=== PATIENT | female | born 1955 | race Caucasian/White ===

== ENCOUNTER 2024-03-12 20:01 | Emergency (ER) | payer OTHER, SELFPAY ==
[2024-03-12 20:03] VITALS: BP 136/75
--- NOTE | 2024-03-12 21:03 | ED.GENMED ---
History of Present Illness
General
Chief Complaint: Abdominal Pain
Source: patient
Exam Limitations: none
Time Seen by Provider: 03/12/24 20:49
Nursing documentation reviewed up to this point in time: agreed with
Travel History
Have you had any contact with someone who has COVID-19?: No
Do you have any symptoms of coronavirus? Fever > 100 degrees, chills, cough, shortness of breath, sore throat, loss of taste or smell, muscle aches, or headache?: No
History of Present Illness
History of Present Illness:
68 yo female w h/o HLD, Breast CA x 3 with mastectomy, lumpectomy, last 2 yrs ago, Pelvic floor surgery 08/2023, presents stating 3 days ago developed R flank pain, fatigue, fever 101.0, 2 days ago developed pain across lower abdomen, chills, fever
101.0 again. Took Advil, felt a little better. Woke up next two nights with sweats. Yesterday felt a little better but pain remained across lower abdomen 2-4/10. Slept well last night. This a.m. pain persisted across lower abdomen, started with
fever and chills again.
Had 5 small but loose, non bloody BMs yesterday. None today. Denies burning, frequency, urgency to urinate. Has had UTIs in past and states this is different.
Past History
Past History
ED Past Medical History: Cancer (bilateral breast CA, skin cancer), GERD and Hypercholesterolemia
ED Past Surgical History: Gynecological (lumpectomy, mastectomy) and Orthopedic
Social History
Tobacco: Non-smoker
Alcohol: Occasional
Personal:
Living: with family
Employment: Employed
Review of Systems
Review of Systems
Allergies reviewed?: Yes
All Other Systems: ROS reviewed and negative except as documented in HPI and ROS
Constitutional: Reports fever, fatigue and chills
Respiratory: Denies trouble breathing
Cardiac: Denies chest pain
ABD/GI: Reports abdominal pain and diarrhea (loose stools); Denies nausea, vomiting, constipated, bloody stools or black stools
: Reports flank pain (R flank pain 2 days ago has subsided); Denies dysuria, frequency, incontinence, difficulty voiding or urgency
Musculoskeletal: Reports no symptoms
Skin: Reports other (mid upper back recent skin Ca removed, dressing on)
Neurological: Reports no symptoms
Phy Exam
Physical Exam
Physical Exam:
GENERAL: No acute distress. A&Ox3.
CONSTITUTIONAL: Afebrile.
EYES: Clear, conjunctivae normal
ENMT: moist mucus membranes, Pharynx nl
RESPIRATORY: Regular respirations, nonlabored, lungs clear.
CARDIOVASCULAR: Regular rate and rhythm, no murmurs, no rubs.
GI: Soft, tender across lower abdomen, hypoactive BA
MUSCULOSKELETAL: Moves with ease. Well perfused.
SKIN: Warm, dry, pink
PSYCH: Normal mood and affect. Well kept, interactive and appropriate
NEUROLOGIC: Awake, alert and oriented. No focal neurological deficits
Course
Orders/Labs/Results
Orders:
Orders
03/12/24 21:02
CT Abd/Pel (IV only)-DH only Urgent
Comment:
Reason For Exam: pain LLQ, suprapubic areas, fever, diarrhea
03/12/24 21:03
0.9% Sodium Chloride 1000 ml [Nss] 1,000 ml IV BOLUS
03/12/24 21:11
Complete Blood Count/With Diff Urgent
Comprehensive Metabolic Panel Urgent
Lipase Urgent
03/12/24 21:13
Urinalysis Reflex To Culture Urgent
Date Specimen was Collected: 03/12/24
Time Specimen was Collected: 21:12
Urine Microscopic Reflex Cult Urgent
03/12/24 23:11
Amoxicillin 875 mg/Clav 125 mg [Augmentin 875 mg/125 mg] 1 tablet PO NOW STA
Abnormal Lab Results
03/12/24 03/12/24
21:11 21:13
RBC 3.86 L 10^6/uL
(4.20-5.40)
Hgb 11.8 L g/dL
(12.0-16.0)
Hct 34.3 L %
(37.0-47.0)
MPV 11.0 H fL
(7.4-10.4)
Lymphocytes % 17.5 L %
(20.5-51.1)
BUN 19 H mg/dl
(7-17)
Glucose 107 H mg/dl
(70-99)
AST 114 H U/L
(14-36)
ALT 113 H U/L
(0-35)
Alkaline Phosphatase 158 H U/L
(38-126)
Ur Occult Blood Reflex 2+ A
(Negative)
Urine RBC 3-6 A /HPF
(0-2)
Urine Bacteria (Reflex) Few A
(Negative)
03/12/24 21:11
03/12/24 21:11
Vital Signs
Initial and Last Documented VS:
Initial Vital Signs
Temp Pulse Resp BP Pulse Ox
100.2 F 74 16 136/75 98
03/12/24 20:03 03/12/24 20:03 03/12/24 20:03 03/12/24 20:03 03/12/24 20:03
Last Documented Vital Signs
Temp Pulse Resp BP Pulse Ox
100.2 F 66 16 136/64 99
03/12/24 20:03 03/12/24 23:21 03/12/24 23:21 03/12/24 23:21 03/12/24 23:21
MDM/Problems Addressed
Differential Diagnosis Includes:
diverticulitis, UTI, constipation, colitis
MDM/Problems Addressed:
68 yo female w h/o HLD, Breast CA x 3 with mastectomy, lumpectomy, last 2 yrs ago, Pelvic floor surgery 08/2023, presents stating 3 days ago developed R flank pain, fatigue, fever 101.0, 2 days ago developed pain across lower abdomen, chills, fever
101.0 again. Took Advil, felt a little better. Woke up next two nights with sweats. Yesterday felt a little better but pain remained across lower abdomen 2-02/02. Slept well last night. This a.m. pain persisted across lower abdomen, started with
fever and chills again.
Had 5 small but loose, non bloody BMs yesterday. None today. Denies burning, frequency, urgency to urinate. Has had UTIs in past and states this is different.
10:35 p.m.
CBC: No clinically significant abnormality
CMP: Liver enzymes elevated, otherwise normal
U/A unremarkable
11:[address] abd pelvis with IV only contrast Preliminary Radiology report reviewed: Acute sigmoid diverticulitis with extensive surrounding inflammatory stranding. No abscess or free air.
R ovarian vein thrombosis.
Pt has no symptom of septic thrombophlebitis
Pt and informed of CT results all questions answered.
Rx for Augmenting sent to her pharmacy
Instructed to contact her GI doctor at [place] where she has had previous colonoscopies to arrange for a f/u colonoscopy
*Critical Care Note
Total Time (30-74mins, 75-104mins- exclusive of procedures): Not Applicable
ED Attending Note
-
Portions of this chart may have been created with voice recognition software.� Occasional wrong word or��sound alike� substitutions may have occurred due to the inherent limitations of voice recognition software.
Discharge Plan
Departure
Patient Disposition: Home (Routine Discharge)
Date of Disposition: 03/12/24
Time of Disposition: 23:18
Patient with high blood pressure during this ER visit?: No
Condition: Good
Discharge Problem:
Sigmoid diverticulitis
Instructions: Clear Liquid Diet, Diverticulitis (DC)
Prescriptions:
New
amoxicillin-pot clavulanate 875-125 mg tablet
1 tab PO BID Qty: 14 0RF
No Action
atorvastatin 20 MG tablet
20 mg PO DAILY
cholecalciferol (vitamin D3) 1,000 UNITS tablet
3,000 - 4,000 units PO DAILY
calcium carbonate-vitamin D3 [Calcium 600 + D(3)] 1 EACH tablet
1 ea PO PRN PRN (Reason: supplement)
melatonin 5 MG tablet
5 - 10 mg PO HSPRN PRN (Reason: insomnia)
ibuprofen [Advil] 200 MG tablet
200 mg PO PRN PRN (Reason: discomfort)
Referrals:
Mandy Xiong CRNP [Family Provider] -
Donna Joshi DO [Active] - Call in 1-3 days for appt
Activity Restrictions/Additional Instructions:
As we discussed, I sent a prescription to your pharmacy for Augmentin antibiotic to take twice daily for 7 days
Return here immediately for worsening abdominal pain, fever bloody stools or feeling sicker in any way
Call and make appointment with the GI doctor and schedule a colonoscopy for after your symptoms resolve.
Interventions
Interventions:
*Risk Screen - Suicide Last Done: 03/12/24 20:03
*General Assessment Last Done: 03/12/24 23:20
*Neglect/Abuse Screening Last Done: 03/12/24 20:03
ED- Fall Risk Assessment Last Done: 03/12/24 21:28
*ED COVID-19 Vaccine History Last Done: 03/12/24 21:02
*Nursing Disposition Last Done: 03/12/24 23:30
UJ-Rlbogx-Rnswqnvlby Assessment Last Done: 03/12/24 21:26
Discharge Date and Time
Discharge Date/Time: 03/12/24 23:32
Print Language: ARABIC
[2024-03-12] MEDS: NSS 1000 IV (21:16)
[2024-03-12 21:24] LABS: % Basophils 0.4 % (0-2); % Eosinophils 2.1 % (0-6); % Immature Granulocytes 0.3 % (0-0.5); % Lymphocytes 17.5 % (20.5-51.1); % Neutrophils 70.7 % (42.2-75.2); Absolute Eosinophils 0.1 10^3/uL (0-0.7); Absolute Lymphocytes 1.2 10^3/uL (1.2-3.4); Absolute Monocytes 0.6 10^3/uL (0.1-0.6); Absolute Neutrophils 4.7 10^3/uL (1.4-6.5); Hematocrit 34.3 % (37.0-47.0); Hemoglobin 11.8 g/dL (12.0-16.0); Mean Corp Hgb Conc. 34.4 g/dL (33.0-37.0); Mean Corpuscular Hgb 30.6 pg (27.0-31.0); Mean Corpuscular Volume 88.9 fL (81.0-99.0); Nucleated Red Blood Cells % 0 %; Platelet Count 151 10^3/uL (130-400); Red Blood Cell Count 3.86 10^6/uL (4.20-5.40); Red Cell Dist. Width 12.8 % (11.5-14.5); White Blood Cell Count 6.7 10^3/uL (4.8-10.8)
[2024-03-12 21:25] LABS: Urine Albumin Negative (Neg - Trace); Urine Bilirubin Negative (Negative); Urine Character Clear (Clear); Urine Color Yellow; Urine Glucose Negative (Negative); Urine Ketone Negative (Negative); Urine Leukocyte Negative (Negative); Urine Nitrite Negative (Negative); Urine Occult Blood 2+ (Negative); Urine Specific Gravity 1.015 (<1.030); Urine Urobilinogen 1+ (Neg - 1+)
[2024-03-12 21:47] LABS: Urine Bacteria Few (Negative); Urine White Cell 0-2 /HPF (0-5)
[2024-03-12 21:49] LABS: ALT (SGPT) 113 U/L (0-35); AST (SGOT) 114 U/L (14-36); Albumin 4.1 g/dl (3.5-5.0); Alkaline Phosphatase 158 U/L (38-126); Blood Urea Nitrogen 19 mg/dl (7-17); Calcium 9.1 mg/dl (8.4-10.2); Carbon Dioxide 28 mmol/L (22-30); Chloride 103 mmol/L (98-107); Glucose 107 mg/dl (70-99); Lipase 55 U/L (23-300); Potassium 3.7 mmol/L (3.5-5.1); Sodium 138 mmol/L (135-145); Total Bilirubin 0.5 mg/dl (0.2-1.3); Total Protein 7.1 g/dl (6.3-8.2); eGFR > 60.00
[2024-03-12] MEDS: AUGMENTIN 875 MG/125 MG 1 TABLET PO (23:18)
[2024-03-12 23:21] VITALS: BP 136/64
== END 2024-03-12 23:32 | disposition home or self-care (01) ==
LOC: EMR 20:01
PROVIDERS: Registered Nurse; EMERGENCY PHYSICIAN Emergency Medicine; FAMILY PHYSICIAN Nurse Practitioner
DX: K57.32 Diverticulitis of large intestine without perforation or abscess without bleeding (principal); M19.09 Primary osteoarthritis, other specified site; E78.5 Hyperlipidemia, unspecified; K21.9 Gastro-esophageal reflux disease without esophagitis; E78.00 Pure hypercholesterolemia, unspecified; Z85.828 Personal history of other malignant neoplasm of skin; Z85.3 Personal history of malignant neoplasm of breast; Z87.440 Personal history of urinary (tract) infections; Z92.3 Personal history of irradiation; Z90.11 Acquired absence of right breast and nipple
CPT/HCPCS: 99285; 96360; 74177; 80053; 81003; 81015; 83690; 85025; Q9967

== ENCOUNTER → 2024-03-29 09:29 | Outpatient (REF) | payer OTHER, SELFPAY | LOC: HWRAD 09:29 | PROVIDERS: ATTENDING PHYSICIAN Surgery Plastic and Reconstructive Surgery | DX: D17.9 Benign lipomatous neoplasm, unspecified (principal) | CPT/HCPCS: 76882 ==

== ENCOUNTER → 2024-07-04 11:56 | Outpatient (REF) | payer OTHER, SELFPAY | LOC: HWRAD 11:56 | PROVIDERS: ATTENDING PHYSICIAN Internal Medicine Hematology & Oncology; FAMILY PHYSICIAN Nurse Practitioner | DX: I82.90 Acute embolism and thrombosis of unspecified vein (principal) | CPT/HCPCS: 74178; Q9967 ==

== ENCOUNTER → 2024-11-01 15:22 | Outpatient (REF) | payer OTHER, SELFPAY | LOC: RAD 15:22 | PROVIDERS: ATTENDING PHYSICIAN Internal Medicine Hematology & Oncology; FAMILY PHYSICIAN Nurse Practitioner | DX: I82.90 Acute embolism and thrombosis of unspecified vein (principal) | CPT/HCPCS: 74177; Q9967 ==

== ENCOUNTER 2025-09-05 06:36 | Day surgery (SDC) | payer OTHER, SELFPAY ==
[2025-08-25 11:52] LABS: Blood Urea Nitrogen 28 mg/dl (7-17); Calcium 9.2 mg/dl (8.4-10.2); Carbon Dioxide 28 mmol/L (22-30); Chloride 102 mmol/L (98-107); Glucose 89 mg/dl (70-99); Potassium 5.0 mmol/L (3.5-5.1); Sodium 133 mmol/L (135-145); eGFR > 60.00
[2025-08-25 14:08] VITALS: BMI 28.9
[2025-08-25 14:18] LABS: Hematocrit 38.2 % (37.0-47.0); Hemoglobin 12.6 g/dL (12.0-16.0); Mean Corp Hgb Conc. 33.0 g/dL (33.0-37.0); Mean Corpuscular Volume 94.6 fL (81.0-99.0); Platelet Count 147 10^3/uL (130-400); Red Cell Dist. Width 13.0 % (11.5-14.5)
[2025-09-05] VITALS (14 sets, daily range): BP systolic 106–141; BP diastolic 51–77; BMI 28.9
[2025-09-05] MEDS: TYLENOL 1000 MG PO (12:13)
[2025-09-05] MEDS: NORMOSOL-R/PLASMALYTE-A 1000 IV (12:15)
[2025-09-05] MEDS: DILAUDID 0.5 MG IV ×2 (15:05→15:21)
[2025-09-05] MEDS: TORADOL 30 MG IV (15:35)
[2025-09-05] MEDS: ZOFRAN 4 MG IV (17:30)
== END 2025-09-05 18:35 | disposition home or self-care (01) ==
LOC: SDS 06:36
PROVIDERS: ATTENDING PHYSICIAN Obstetrics & Gynecology; FAMILY PHYSICIAN Nurse Practitioner; OTHER PHYSICIAN Obstetrics & Gynecology
DX: N81.10 Cystocele, unspecified (principal); N39.3 Stress incontinence (female) (male); N36.41 Hypermobility of urethra
CPT/HCPCS: 57425; 36415; 80048; 85027; 86850; 86900; 86901; 93005; C1763